=== PATIENT | female | born 1980 | race Caucasian/White ===

== ENCOUNTER 2022-05-27 14:41 | Outpatient (CLI) | payer BC, SELFPAY ==
[2022-05-27 14:50] LABS: Chloride* 107 mmol/L (96-114); Sodium* 139 mmol/L (135-149)
[2022-05-27 14:51] LABS: Potassium* 4.7 mmol/L (3.6-5.1)
[2022-05-27 14:53] LABS: Blood Urea Nitrogen* 10 mg/dL (5-24); Carbon Dioxide* 28 mmol/L (20-32); Cholesterol* 186 mg/dL (90-199); Creatinine* 0.6 mg/dL (0.5-1.5); Estimated Glomerular Filt Rate 114 ml/min
[2022-05-27 14:54] LABS: Calcium* 9.3 mg/dL (8.4-10.6); Glucose* 90 mg/dL (60-115); HDL Cholesterol* 43 mg/dL (>=50); LDL Cholesterol Calculated 126 mg/dL (<100); Triglycerides* 87 mg/dL (40-149)
--- NOTE | 2022-05-27 15:00 | CRLHL7_ITS ---
For Patients: As a result of the Cures Act, medical imaging exams and procedure reports are released immediately into your electronic medical record. You may view this report before your referring provider. If you have questions, please contact your health care provider. DXA BONE MINERAL DENSITY STUDY, 05/27/2022 Reason for exam: Rheumatoid arthritis, prednisone. Current height (inches): 70.0 Weight (lbs.): 192.0 Menopause age: 41 Ethnicity: White 1. Have you had a previous hip or vertebral fracture? No. 2. Have you had any fractures during your adult life which did not result from significant trauma (e.g., auto accident)? No. 3. Did either of your parents have a hip fracture? No. 4. Do you smoke? No. 5. Have you ever taken Glucocorticoids? No. 6. Do you have rheumatoid arthritis? Yes. 7. Do you have secondary osteoporosis? No. 8. Do you drink 3 or more alcoholic drinks per day? No. 9. Are you being treated for osteoporosis? No. 10. Have you ever taken any of the following medications: Actonel, Evista, Fosamax, Miacalcin, Reclast, Boniva, Forteo, HRT (i.e., estrogen/hormone therapy), Protelos, Prolia, Vitamin D, Calcium, other ??? please specify. ANSWER: No. 11. Do you have any of the following medical conditions: Anorexia or bulimia, asthma or emphysema, end stage renal disease, hyperparathyroidism, any seizure disorders, cancer, inflammatory bowel diseases, hysterectomy, other ??? please specify. ANSWER: Yes; hysterectomy. 12. What was your maximum height (inches)? 70. 13. Do you perform weight bearing exercise regularly? Yes. 14. Do you regularly consume dairy products? Yes. 15. Do you drink caffeinated beverages? Yes. 16. At what age did your period start? 10. 17. Are you premenopausal? No. 18. How many full-term pregnancies have you had? 2. 19. Have you ever missed your period for more than 6 months in a row (not including or menopause)? No. TECHNIQUE: Bone mineral density study was performed using the Ba[employer]. FINDINGS: The results of the study expressed as bone mineral density (BMD) are as follows: Lumbar Spine L1 to L4: BMD: 0.947 g/cm2. T-score: -0.9. Z-score: -0.5. Neck Left: BMD: 0.805 g/cm2. T-score: -0.4. Z-score: 0.0. Right: BMD: 0.795 g/cm2. T-score: -0.5. Z-score: -0.1. Total Left: BMD: 0.937 g/cm2. T-score: 0.0. Z-score: 0.2. Right: BMD: 0.920 g/cm2. T-score: -0.2. Z-score: 0.1. IMPRESSION: Normal bone density. EZRA BUSTAMANTE M.D. Diagnostic Radiologist [email or web address] Transcribed: 6:[address]/Dictated by: Ezra Bustamante MD @ 05/28/2022 9:22:00 AM (Electronically Signed)
== END 2022-05-27 14:42 | disposition home or self-care (01) ==
LOC: RAD 14:42
PROVIDERS: PCP Emergency Medicine; Visit Provider Emergency Medicine
DX: M06.9 Rheumatoid arthritis, unspecified (principal); Z13.1 Encounter for screening for diabetes mellitus; Z13.6 Encounter for screening for cardiovascular disorders
CPT/HCPCS: 36415; 77080; 80048; 80061

== ENCOUNTER 2022-08-05 13:06 | Outpatient (CLI) | payer BC, SELFPAY ==
--- NOTE | 2022-08-05 13:20 | CRLHL7_ITS ---
For Patients: As a result of the Century Cures Act, medical imaging exams and procedure reports are released immediately into your electronic medical record. You may view this report before your referring provider. If you have questions, please contact your health care provider. BILATERAL SCREENING MAMMOGRAM WITH COMPUTER-AIDED DETECTION AND TOMOSYNTHESIS TECHNIQUE: CC and MLO views were obtained. These mammographic images have been obtained using full-field digital technique. These mammographic images were interpreted with the benefit of computer-aided detection. Breast tomosynthesis was used in this interpretation. COMPARISON FILM: 07/09/19, 05/20/16. FINDINGS: There are scattered areas of fibroglandular density. IMPRESSION: There is no radiographic evidence for malignancy. ASSESSMENT: BI-RADS Category 1: Negative RECOMMENDATION: Routine screening mammogram in 1 year. A lay language report of this examination will be provided to the patient. MAHI BRITO M.D. Diagnostic/Nuclear Medicine Radiologist [email or web address] Transcribed: 4:[address]/Dictated by: Mahi Brito MD @ 08/06/2022 9:06:00 AM (Electronically Signed)
== END 2022-08-05 13:07 | disposition home or self-care (01) ==
LOC: MAMMO 13:07
PROVIDERS: PCP Emergency Medicine; Visit Provider Emergency Medicine
DX: Z12.31 Encounter for screening mammogram for malignant neoplasm of breast (principal)
CPT/HCPCS: 77063; 77067

== ENCOUNTER 2024-11-09 13:40 | Outpatient (CLI) | payer BC, SELFPAY ==
[2024-11-13 19:15] LABS: HPV Source Vaginal; HPV, High Risk by TMA Not Detected
== END 2024-11-09 13:41 | disposition home or self-care (01) ==
PROVIDERS: PCP Emergency Medicine; Visit Provider Registered Nurse
DX: Z12.4 Encounter for screening for malignant neoplasm of cervix (principal); Z11.51 Encounter for screening for human papillomavirus (HPV)
CPT/HCPCS: 87624; 87625; 88141; 88142

== ENCOUNTER 2024-11-22 08:58 | Outpatient (CLI) | payer BC, SELFPAY ==
--- NOTE | 2024-11-22 09:15 | CRLHL7_ITS ---
For Patients: As a result of the Century Cures Act, medical imaging exams and procedure reports are released immediately into your electronic medical record. You may view this report before your referring provider. If you have questions, please contact your health care provider. INDICATION: Pelvic and perineal pain COMPARISON: none TECHNIQUE: 2D thorne scale and color Doppler images were acquired of the pelvis using a transabdominal and transabdominal and transvaginal approach. Spectral Doppler evaluation also performed of the ovaries. FINDINGS: The uterus is absent. The right ovary measures 3.5 x 2.2 x 1.8 cm in size and the left ovary measures 4.2 x 2.2 x 2.9 cm. The ovaries demonstrate normal arterial and venous blood flow on color Doppler analysis. There are no suspicious fluid collections within the cul-de-sac. Spectral Doppler evaluation of both ovaries is normal. No evidence of torsion. IMPRESSION: No suspicious findings are present status post hysterectomy. Dictated by Ezra Verdugo MD @ 11/22/2024 3:29:41 PM (Electronically Signed)
== END 2024-11-22 08:59 | disposition home or self-care (01) ==
LOC: US 08:59
PROVIDERS: PCP Emergency Medicine; Visit Provider Registered Nurse
DX: R10.2 Pelvic and perineal pain (principal)
CPT/HCPCS: 76830; 76856; 93976

== ENCOUNTER 2025-01-24 12:01 | Outpatient (CLI) | payer BC, SELFPAY ==
[2025-01-24 17:19] LABS: Bacterial Vaginosis* POSITIVE (Negative); Candida glab/krus NOT DETECTED (No Detected)
== END 2025-01-24 12:02 | disposition home or self-care (01) ==
PROVIDERS: PCP Emergency Medicine; Visit Provider Obstetrics & Gynecology
DX: N92.6 Irregular menstruation, unspecified (principal)
CPT/HCPCS: 81513; 87481; 87661

== ENCOUNTER 2025-01-31 07:59 | Outpatient (CLI) | payer BC, SELFPAY ==
--- NOTE | 2025-01-31 08:15 | CRLHL7_ITS ---
For Patients: As a result of the Century Cures Act, medical imaging exams and procedure reports are released immediately into your electronic medical record. You may view this report before your referring provider. If you have questions, please contact your health care provider. INDICATION: BILATERAL SCREENING MAMMOGRAM, ASYMPOMATIC 44 Y/O FEMALE COMPARISON: 08/05/2022, 07/09/2019, 05/20/2016 TECHNIQUE: Digital mammogram in CC and MLO projections including computer-aided detection (CAD) and tomosynthesis. BREAST COMPOSITION: There are scattered areas of fibroglandular density. FINDINGS: No suspicious findings. ASSESSMENT: BI-RADS 1 Negative RECOMMENDATION: Annual screening mammogram. A lay language report of this examination will be provided to the patient. Dictated by: Macie Rosas MD @ 02/02/2025 14:19:45 (Electronically Signed)
== END 2025-01-31 08:00 | disposition home or self-care (01) ==
LOC: MAMMO 08:00
PROVIDERS: PCP Emergency Medicine; Visit Provider Emergency Medicine
DX: Z12.31 Encounter for screening mammogram for malignant neoplasm of breast (principal)
CPT/HCPCS: 77063; 77067